=== PATIENT | female | born 1990 | race Caucasian/White ===

== ENCOUNTER 2019-02-22 20:28 | Emergency (ER) | payer OTHER, SELFPAY ==
[2019-02-22 20:31] VITALS: BP 125/82; PULSE 106; RESP 18; TEMP 36.8; O2SAT 98; BMI 40.7
--- NOTE | 2019-02-22 20:44 | ED_ITS ---
Entered by Anna Pepe, acting as scribe for HPI - Female Genitourinary General: Chief complaint: Vaginal Bleeding Stated complaint: hydratinitis - bleeding Time Seen by Provider: 02/22/19 20:42 Source: patient Mode of arrival: ambulatory History of Present Illness: HPI Narrative: 29 yo female presents with bleeding from buttocks tear. pt has a hx of hydratinitis. pt has no pain. pt states nothing made this better or worse. pt denies any other symptoms at this time. Onset (ago): day(s) (today) Severity: mild Consistency: constant Vaginal discharge: none Vaginal bleeding: none Exacerbating factors: none Relieving factors: none Associated symptoms: Reports no associated symptoms; Deny abdominal pain, headache(s) or nausea Treatment prior to arrival: none Review of Systems Const: Denies: fever or chills Eyes: Denies: change in vision ENMT: Denies: throat pain or mouth pain Card: Denies: chest pain Resp: Denies: shortness of breath GI: Denies: abdominal pain, nausea, vomiting or diarrhea : Denies: difficulty urinating Musc: Denies: back pain or joint pain Skin/Breast: Denies: rash Neuro: Denies: headache or behavioral changes Psych: Denies: depression Endo: Denies: excessive urination [place]/Lymph: Denies: easy bruising All/Imm: Denies: hives PFSH ED PFSH: Statuses (acute, chronic, etc) shown below reflect problem list status as previously entered and may not be historically accurate Social History Smoking and tobacco status: never smoked Physical Exam Const: COMMON NORMALS: no apparent distress and healthy appearing HENMT: COMMON NORMALS: normocephalic and external nose normal HEAD & SCALP: normocephalic NOSE: external nose normal and no nasal discharge (nasal dischage) Eye: COMMON NORMALS: PERRL PUPIL: Yes PERRL Neck/C-Spine: COMMON NORMALS: full ROM and no lymphadenopathy Chest: COMMONS NORMALS: inspection of chest normal Resp: COMMON NORMALS: normal respiratory effort and clear to auscultation bilaterally AUSCULTATION: clear to auscultation bilaterally Cardio: COMMON NORMALS: regular rate and regular rhythm RATE: regular rate RHYTHM: regular rhythm GI: COMMON NORMALS: soft to palpation PALPATION: Yes soft : OTHER: Extensive scar tissue from hidradenitis at the gluteal cleft patient has a small tear there in the scar tissue with very slight bleeding Extremity: COMMON NORMALS: normal to inspection, full ROM and normal capillary refill Psych: COMMON NORMALS: mental status grossly normal and cooperative Skin: COMMON NORMALS: no rashes or lesions noted GENERAL SKIN EXAM: no rashes or lesions noted Course Vital Signs: Vital signs: Vital Signs Temperature 97.8 F 02/22/19 21:04 Pulse Rate 101 H 02/22/19 21:04 Respiratory Rate 18 02/22/19 21:04 Blood Pressure 154/95 02/22/19 21:04 Pulse Oximetry 97 02/22/19 21:04 MDM - Female MDM Narrative: Medical decision making narrative: Patient presents here with bleeding from scar tissue. Patient had less bleeding at this time and will just do pressure dressing. Patient is to follow-up with her men's basketball coach return to ER if worsening. Discharge Plan Discharge Patient Disposition: Home, Self-Care Clinical Impression: Hidradenitis Condition: Stable Prescriptions: No Action 1 tab RF: 0 Humira RF: 0 Discharge Orders: Discharge Order (Routine); Ordered 02/22/19 Ordered By: Jeanne Moon Referrals: Crow Sanchez MD [Primary Care Provider] - Discharge Diet: Advance as tolerated Discharge Activity: Resume usual activity Activity Restrictions/Additional Instructions: Keep pressure on bleeding site and keep bandages in place. Follow-up with men's basketball coach in 5 to 7 days and return to the ER if worsening. Coding Level of Care Code ED Plastic Maker for Luisa Tracy The documentation recorded by the Afshin price Bridget Annette, accurately reflects the service I personally performed and the decisions made by Jamie elizabeth Korby, MD
[2019-02-22 20:45] VITALS: BP 144/84; PULSE 101; RESP 18; O2SAT 97
[2019-02-22 21:04] VITALS: BP 154/95; PULSE 101; RESP 18; TEMP 36.6; O2SAT 97
== END 2019-02-22 21:05 | disposition home or self-care (01) ==
LOC: ER 23:11
PROVIDERS: Emergency Provider Emergency Medicine; Family Provider Family Medicine; PCP Family Medicine
DX: L73.2 Hidradenitis suppurativa (principal)
CPT/HCPCS: 99281

== ENCOUNTER 2020-03-26 14:25 | Outpatient (CLI) | payer OTHER, SELFPAY | END 2020-03-26 14:26 | disposition home or self-care (01) | LOC: WOUND 14:25 | PROVIDERS: Family Provider Family Medicine; PCP Family Medicine; Visit Provider Thoracic Surgery (Cardiothoracic Vascular Surgery) | DX: L98.492 Non-pressure chronic ulcer of skin of other sites with fat layer exposed (principal) | CPT/HCPCS: 11042; G0463 ==

== ENCOUNTER 2020-04-02 10:34 | Outpatient (CLI) | payer OTHER, SELFPAY | END 2020-04-02 10:35 | disposition home or self-care (01) | LOC: WOUND 10:34 | PROVIDERS: Family Provider Family Medicine; PCP Family Medicine; Visit Provider Thoracic Surgery (Cardiothoracic Vascular Surgery) | DX: L73.2 Hidradenitis suppurativa (principal) | CPT/HCPCS: 11042 ==

== ENCOUNTER 2020-04-16 13:47 | Outpatient (CLI) | payer OTHER, SELFPAY | END 2020-04-16 13:48 | disposition home or self-care (01) | LOC: WOUND 13:47 | PROVIDERS: Family Provider Family Medicine; PCP Family Medicine; Visit Provider Thoracic Surgery (Cardiothoracic Vascular Surgery) | DX: L73.2 Hidradenitis suppurativa (principal) | CPT/HCPCS: 11042 ==

== ENCOUNTER 2020-06-21 14:41 | Emergency (ER) | payer OTHER, SELFPAY ==
[2020-06-21 14:44] VITALS: BP 137/101; PULSE 115; RESP 18; TEMP 36.6; O2SAT 100; BMI 36.0
--- NOTE | 2020-06-21 14:53 | USR_ITS ---
PROCEDURE INFORMATION: Exam: US First Trimester, Transabdominal and US , Transvaginal Exam date and time: 06/21/2020 3:08 PM Age: 30 years old Clinical indication: Lmp or gestational age (in weeks): 8 weeks 5 days; Other: Vaginal bleeding; ; Additional info: Threatened ab TECHNIQUE: Imaging protocol: Real-time transabdominal obstetrical ultrasound of the maternal pelvis and a first trimester , less than 14 weeks 0 days, with image documentation. Transvaginal imaging was used for better evaluation of the fetus, adnexa, and/or cervix. Total images: 41 COMPARISON: US [facility] 08/16/2016 2:38 PM FINDINGS: Gestation: Single live intrauterine gestation. Measured age by crown rump length 8 weeks 5 days. Normal size yolk sac. Embryonic/ heart rate: Positive cardiac activity at 167 beats minute. Placenta: Unremarkable. No subchorionic bleed. Amniotic fluid: Amniotic fluid is normal for gestational age. BIOMETRY: Gestational age (AUA): 8 weeks 5 days. MATERNAL: Uterus: Anteverted uterus dimensions 8.8 cm x 5.6 cm x 7.1 cm. Cervix: Cervix normal. Internal os closed. Cervical length 5 cm. Right adnexa: Right ovary sonographically normal measuring 2.1 cm x 1.3 cm x 1.7 cm. Positive arterial flow. No visible right adnexal mass or cystic lesion. Left adnexa: Left ovary sonographically normal measuring 2.3 cm x 1.9 cm x 2.1 cm. Positive arterial flow. Small involuting corpus luteal cyst measuring 8 mm. No visible left adnexal mass or cystic structure. Intraperitoneal space: No free fluid the cul-de-sac. Other findings: Estimated dated delivery 01/26/2021. US/US OB <=14 wk fetus w transvag IMPRESSION: Single live intrauterine gestation with positive cardiac activity and measured age by crown rump length 8 weeks 5 days.
--- NOTE | 2020-06-21 15:05 | W.ED.FEMALGU ---
HPI - Female Genitourinary General: Chief complaint: Urogenital-Female Stated complaint: 9-10 wks ,spotting and cramping Time Seen by Provider: 06/21/20 14:52 History of Present Illness: HPI Narrative: The patient is a 30-year-old female at approximately 10 weeks gestation. She comes today complaining of cramping and spotting yesterday and today spotting but no cramping. She had a positive test early in May. She says she does not know her last menstrual period because in February she had an IUD which was removed around that time. She did not have a menstrual period since the removal. She is a G4, P1 with a healthy 4-year-old child. 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 Her blood pressure is slightly elevated 137/101. She said during her OB interview her systolic was 117. Recommended continued outpatient monitoring of her blood pressure and check it at home and bring that to her OB Dr. Sanchez next week. Denies urinary symptoms. She thinks she is Rh+. MD elicited complaint: possible miscarriage Severity: mild Consistency: intermittent Associated symptoms: Reports no associated symptoms; Deny abdominal pain or headache(s) Review of Systems General: Reports: 10 or more systems reviewed and unremarkable except in HPI and below Const: Denies: fatigue Eyes: Denies: change in vision, blurry vision or eye redness ENMT: Denies: throat pain, swelling of lips/tongue, ear or mastoid pain or nasal congestion Card: Denies: chest pain, palpitations, irregular heart rhythm, edema, dyspnea on exertion or orthopnea Resp: Denies: dyspnea, productive cough or non-productive cough GI: Denies: abdominal pain, diarrhea or GI cramping : Reports: other (Vaginal spotting of blood); Denies: flank pain, difficulty voiding, urinary frequency or urinary urgency Musc: Denies: neck pain, back pain, extremity pain, joint pain, joint redness, limited range of motion or muscle weakness Skin/Breast: Denies: rash, pruritus, erythema, skin pain or skin tenderness Neuro: Denies: headache(s), numbness in extremities, weakness in extremities, sensory changes, difficulty walking, dizziness, confusion or Slurred speech present Psych: Denies: anxiety or depression Endo: Denies: polyuria All/Imm: Denies: urticaria, throat swelling or tongue swelling PFSH ED PFSH: Medical History Depression Hidradenitis suppurativa Surgical History H/O tooth extraction Social History Smoking and tobacco status: never smoked Physical Exam Const: COMMON NORMALS: no acute distress, average body habitus, patient oriented x3, no limitations, healthy appearing, alert and well nourished GENERAL APPEARANCE: cooperative, comfortable, well kempt and well developed ORIENTATION/CONSCIOUSNESS: Yes awake, Yes oriented to person, Yes oriented to place and Yes oriented to time HENMT: COMMON NORMALS: normocephalic, external ears normal and Normal external nose present HEAD & SCALP: normal to inspection and normocephalic NOSE: Normal external nose present EXTERNAL EAR: Yes external ears normal MOUTH: Normal oral and palatal mucosa present THROAT: posterior oropharynx normal Eye: COMMON NORMALS: Equal, round and reactive pupils present and EOMs intact bilaterally GENERAL EYE: appearance normal, both eyes and all related structures PUPIL: Yes Equal, round and reactive pupils present Neck/C-Spine: COMMON NORMALS: full ROM, no lymphadenopathy, no meningeal signs and no JVD GENERAL: Yes normal visual inspection Lymph: LYMPHATIC: no lymphadenopathy noted Chest: COMMONS NORMALS: normal inspection of the chest and normal palpation of entire chest wall Resp: COMMON NORMALS: normal respiratory effort, No retractions, No use of accessory muscles, clear to auscultation bilaterally and percussion normal EFFORT & INSPECTION: Yes able to speak in complete sentences AUSCULTATION: clear to auscultation bilaterally PERCUSSION: percussion normal Cardio: COMMON NORMALS: no JVD, regular rate, regular rhythm, S1 normal heart sound present, S2 normal heart sound present and Peripheral pulses 2+ throughout RATE: regular rate RHYTHM: regular rhythm HEART SOUNDS: S1 normal heart sound present and S2 normal heart sound present PERIPHERAL PULSES: Peripheral pulses 2+ throughout GI: COMMON NORMALS: Normal to inspection, nondistended, normoactive bowel sounds present, Soft to palpation, non-tender and no masses INSPECTION: Yes normal to inspection PALPATION: Yes Soft to palpation OTHER: Uterus not palpable likely gestation 12 weeks or less. : COMMON NORMALS: Yes no CVA tenderness BLADDER/KIDNEY EXAM: Yes no CVA tenderness Back/Pelvis: COMMON NORMALS: no CVA tenderness, thoracic and lumbar spine normal to inspection, no thoracic nor lumbar tenderness and thoraco-lumbar ROM normal Extremity: COMMON NORMALS: normal to inspection, full ROM, capillary refill normal, no joint enlargement and no pedal edema GENERAL: Yes normal exam except as noted Neuro: COMMON NORMALS: patient oriented x3, CN's II-XII intact bilaterally, moves all extremities, no focal motor deficits, no sensory deficits noted and gait normal SENSORIUM/ORIENTATION: Yes alert, Yes oriented to person, Yes oriented to place and Yes oriented to time MENINGEAL SIGNS: Yes no meningeal signs Psych: COMMON NORMALS: mental status grossly normal, Normal thought process present, cooperative, normal affect and speech normal APPEARANCE: Yes well kempt ATTITUDE: Yes calm SPEECH: Yes normal speech THOUGHT PROCESS: Normal thought process present Skin: COMMON NORMALS: no rashes or lesions noted GENERAL SKIN EXAM: no rashes or lesions noted Course Vital Signs: Vital signs: Vital Signs Temperature 97.8 F 06/21/20 14:44 Pulse Rate 115 H 06/21/20 14:44 Respiratory Rate 18 06/21/20 14:44 Blood Pressure 137/101 06/21/20 14:44 Pulse Oximetry 100 06/21/20 14:44 MDM - Female MDM Narrative: Medical decision making narrative: Patient comes to the ER with a threatened miscarriage with some vaginal spotting yesterday and today. Ultrasound shows a healthy 8-week, 5-day old fetus. She has elevated blood pressure as well. In her screen her systolic blood pressure was 117 which is normal. She says she is very anxious because she has had 2 previous miscarriages and that is likely why she is tachycardic and slightly hypertensive. Continue to monitor it at home and follow-up with Dr. Sanchez next week. ER with worsening symptoms at any time. Lab Data: Labs: Lab Results 06/21/20 06/21/20 06/21/20 Range/Units 16:04 16:04 16:14 WBC 9.9 (4.0-10.0) 10^3/ uL RBC 3.74 L (4.1-5.3) 10^6/u L Hgb 10.1 L (11.5-15.3) g/dL Hct 32.4 L (37.0-47.0) % MCV 86.6 (81-99) fL MCH 27.0 L (28.0-34.0) pg MCHC 31.2 (30.0-36.0) g/dL RDW 12.7 (12.1-15.1) % Plt Count 312 (130-400) 10^3/c mm MPV 9.9 (7.4-10.4) fL Neut % (Auto) 72.1 % Lymph % (Auto) 17.7 % [place] % (Auto) 7.8 % Eos % (Auto) 1.7 % Baso % (Auto) 0.4 % Neut # (Auto) 7.16 (1.8-7.7) 10^3/u L Lymph # (Auto) 1.8 (0.8-4.8) 10^3/u L [place] # (Auto) 0.8 (0.2-0.9) 10^3/u L Eos # (Auto) 0.2 (0.0-0.8) 10^3/u L Baso # (Auto) 0.0 (0.0-0.1) 10^3/u L Nucleated RBC % (a uto) 0 % Nucleated RBCs # 0.0 /100WBC Potassium 4.1 (3.5-5.1) mmol/L Chloride 101 (98-107) mmol/L Carbon Dioxide 24 (22-29) mmol/L Anion Gap 14.1 (5-19) BUN 8 (6-20) mg/dL Creatinine 0.8 (0.5-0.9) mg/dL Glucose 94 (65-115) mg/dL Total Bilirubin 0.2 (0.15-1.2) mg/dL AST 8 (0-32) U/L ALT < 5 (0-33) U/L Alkaline Phosphata se 71 (35-105) IU/L Total Protein 7.2 (6.6-8.7) g/dL Globulin 4.1 (1.3-4.6) g/dL Urine Color Yellow (Yellow) Urine Appearance Clear (CLEAR) Urine pH 5 (5-7) Ur Specific Gravit y 1.020 (1.005-1.030) Urine Protein Neg (Negative) Urine Glucose (UA) Norm (Normal) Urine Ketones Negative (Negative) Urine Blood 3+ H (Negative) Urine Nitrate Negative (Negative) Urine Bilirubin Neg (Negative) Urine Urobilinogen Norm (Negative) mg/dL Ur Leukocyte Herlinda ase 1+ H (Negative) Urine RBC 5-10 H (0-2) /hpf Urine WBC 10-15 H (0-5) /hpf Ur Squamous Epith Cells 5-10 H (0-5) /hpf Amorphous Sediment Not Reportable Urine Bacteria Trace (NONE) /hpf Discharge Plan Discharge Patient Disposition: Home Clinical Impression: , threatened Condition: Stable Prescriptions: No Action (DME) Mepilex 4 X 4 bandage See Rx Instructions .ROUTE .MEDSUPPLY Qty: 5 RF: 6 1 tab PO DAILY RF: 0 Discharge Orders: Discharge ED (Routine); Ordered 06/21/20 Ordered By: Gibran Merchant Referrals: Crow Sanchez MD [Primary Care Provider] - Discharge Diet: Advance as tolerated Discharge Activity: Resume usual activity Patient Instructions: Threatened Miscarriage (ED), Opioid Safety Activity Restrictions/Additional Instructions: You have had some spotting which is called a threatened miscarriage. This can be normal for or it can be an early sign of a possible miscarriage. Your ultrasound did look good which is encouraging. Please follow-up with Dr. Sanchez next week as you already have scheduled and continue to monitor your blood pressure at home as it is elevated here. Return to the ER with worsening symptoms otherwise follow-up with Dr. Sanchez next week. Your baby measures 8 weeks, 5 days here in the ED. Congratulations! Coding Level of Care Code ED Chief Nurse for Kyleg Fwd Exam Comprehensive
[2020-06-21 16:19] LABS: Basophils % 0.4 %; Eosinophils # 0.2 10^3/uL (0.0-0.8); Eosinophils % 1.7 %; Hematocrit 32.4 % (37.0-47.0); Hemoglobin 10.1 g/dL (11.5-15.3); Lymphocytes # 1.8 10^3/uL (0.8-4.8); Lymphocytes % 17.7 %; Mean Corpuscular HGB Conc 31.2 g/dL (30.0-36.0); Mean Corpuscular Volume 86.6 fL (81-99); Mean Platelet Volume 9.9 fL (7.4-10.4); Monocytes # 0.8 10^3/uL (0.2-0.9); Monocytes % 7.8 %; Neutrophils # 7.16 10^3/uL (1.8-7.7); Neutrophils % 72.1 %; Nucleated Red Blood Cells % 0 %; Platelet Count 312 10^3/cmm (130-400); Red Blood Count 3.74 10^6/uL (4.1-5.3); Red Cell Distribution Width 12.7 % (12.1-15.1); White Blood Count 9.9 10^3/uL (4.0-10.0)
[2020-06-21 16:36] LABS: Add Urine Microscopic? YES; Bilirubin Urine Neg (Negative); Blood Urine 3+ (Negative); Glucose Urine UA Norm (Normal); Ketones Urine Negative (Negative); Leukocyte Esterase Urine 1+ (Negative); Nitrate Urine Negative (Negative); Protein Urine Neg (Negative); Urine Appearance Clear (CLEAR); Urine Color Yellow (Yellow); Urobilinogen Urine Norm (Negative); pH Urine 5 (5-7)
[2020-06-21 16:37] LABS: Add Urine Culture? Yes; Bacteria Urine TRACE /hpf
[2020-06-21 16:58] LABS: Alanine Aminotransferase < 5 U/L (0-33); Albumin Level 3.1 g/dL (3.5-5.2); Alkaline Phosphatase 71 IU/L (35-105); Anion Gap 14.1 (5-19); Aspartate Amino Transferase 8 U/L (0-32); Blood Urea Nitrogen 8 mg/dL (6-20); Calcium 8.2 mg/dL (8.5-10.5); Carbon Dioxide 24 mmol/L (22-29); Chloride 101 mmol/L (98-107); Creatinine Clr Calc Pharmacy 128.8965; Globulin 4.1 g/dL (1.3-4.6); Glomerular Filtration Rate 84.8 mL/min (90-130); Glucose 94 mg/dL (65-115); Osmolality Calculated 278 mOsm/kg (285-295); Potassium 4.1 mmol/L (3.5-5.1); Sodium 135 mmol/L (136-145); Total Bilirubin 0.2 mg/dL (0.15-1.2); Total Protein 7.2 g/dL (6.6-8.7)
== END 2020-06-21 17:08 | disposition home or self-care (01) ==
PROVIDERS: Emergency Provider Family Medicine; PCP Family Medicine
DX: O20.0 Threatened abortion (principal); Z3A.08 8 weeks gestation of pregnancy
CPT/HCPCS: 36415; 76801; 76817; 80053; 81001; 84702; 85025; 86850; 86900; 87086; 99283

== ENCOUNTER 2021-01-07 13:11 | Outpatient (CLI) | payer OTHER, SELFPAY ==
[2021-01-07 13:57] VITALS: BP 137/87; PULSE 100
[2021-01-07 14:12] VITALS: RESP 18; BMI 36.1
[2021-01-07 14:20] VITALS: BP 143/73; PULSE 97
[2021-01-07 14:35] VITALS: BP 157/78; PULSE 94
[2021-01-07 14:35] LABS: Actim Prom Negative
== END 2021-01-07 14:50 | disposition home or self-care (01) ==
LOC: OPOB 13:19 → OBGYN 13:31 → OPOB 13:49
PROVIDERS: PCP Family Medicine; Visit Provider Family Medicine
DX: O99.891 Other specified diseases and conditions complicating pregnancy (principal); N89.8 Other specified noninflammatory disorders of vagina
CPT/HCPCS: 59025; 84112; 99211

== ENCOUNTER 2021-01-08 17:00 | Inpatient (IN) | payer OTHER, SELFPAY ==
[2021-01-08] VITALS (21 sets, daily range): BP systolic 127–163; BP diastolic 65–102; PULSE 80–107; RESP 15; TEMP 36.7; BMI 37.3
[2021-01-08 16:47] LABS: Actim Prom Positive
[2021-01-08] MEDS: dextrose 5%-lactated ringers 1,000 ML 125 ML IV (18:38)
[2021-01-08] MEDS: ampicillin 2,000 MG in sodium chloride 0.9% (plus) 50 ML 100 MG IV (18:39)
[2021-01-08] MEDS: miSOPROStol 100 mcg tablet 25 MCG SUBLINGUAL (18:40)
[2021-01-08 18:59] LABS: Basophils # 0.1 10^3/uL (0.0-0.1); Basophils % 0.4 %; Eosinophils # 0.1 10^3/uL (0.0-0.8); Eosinophils % 0.6 %; Hematocrit 30.2 % (37.0-47.0); Hemoglobin 9.4 g/dL (11.5-15.3); Lymphocytes # 1.5 10^3/uL (0.8-4.8); Mean Corpuscular HGB Conc 31.1 g/dL (30.0-36.0); Mean Corpuscular Hemoglobin 26.3 pg (28.0-34.0); Mean Corpuscular Volume 84.4 fl (81-99); Mean Platelet Volume 11.6 fL (7.4-10.4); Monocytes # 0.9 10^3/uL (0.2-0.9); Monocytes % 7.7 %; Neutrophils # 8.95 10^3/uL (1.8-7.7); Neutrophils % 77.3 %; Nucleated Red Blood Cells % 0 %; Platelet Count 294 10^3/cmm (130-400); Red Blood Count 3.58 10^6/uL (4.1-5.3); Red Cell Distribution Width 12.2 % (12.1-15.1); White Blood Count 11.6 10^3/uL (4.0-10.0)
[2021-01-08 19:13] LABS: Alanine Aminotransferase 15 U/L (0-33); Albumin Level 2.5 g/dL (3.5-5.2); Alkaline Phosphatase 287 IU/L (35-105); Aspartate Amino Transferase 18 U/L (0-32); Blood Urea Nitrogen 6 mg/dL (6-20); Calcium 8.7 mg/dL (8.5-10.5); Carbon Dioxide 18 mmol/L (22-29); Chloride 102 mmol/L (98-107); Globulin 4.4 g/dL (1.3-4.6); Glomerular Filtration Rate 145.9 mL/min (90-130); Glucose 63 mg/dL (65-115); Osmolality Calculated 274 mOsm/kg (285-295); Sodium 134 mmol/L (136-145); Total Bilirubin 0.2 mg/dL (0.15-1.2); Total Protein 6.9 g/dL (6.6-8.7); Uric Acid 4.2 mg/dL (2.4-5.7)
[2021-01-08 19:15] LABS: Anion Gap 18.2 (5-19); Potassium 4.2 mmol/L (3.5-5.1)
[2021-01-08 19:33] LABS: Slide Review Slide Review Perform
[2021-01-08 21:33] LABS: Urine Creatinine 141 mg/dL (28-217)
[2021-01-08 21:34] LABS: UPRO/UCREAT Ratio 0.16 mg/mg CR; Urine Protein Random 22 mg/dL
[2021-01-08] MEDS: ampicillin 1,000 MG in sodium chloride 0.9% (plus) 50 ML 100 MG IV (23:11)
[2021-01-08] MEDS: fentaNYL 50 mcg/mL INJ 2mL IVP (23:13)
[2021-01-08] MEDS: oxytocin 30 UNIT/500 ML BAG IV (23:15)
[2021-01-09] VITALS (117 sets, daily range): BP systolic 109–156; BP diastolic 54–95; PULSE 60–131; RESP 16–17; TEMP 35.6–36.9; O2SAT 81–100
[2021-01-09] MEDS: lactated ringers 1,000 ML 999 ML IV ×2 (00:03→01:05)
[2021-01-09] MEDS: fentaNYL 50 mcg/mL INJ 2mL IVP (00:32)
[2021-01-09] MEDS: alum-mag-hydroxide-sime 30 mL UDC PO (01:04)
--- NOTE | 2021-01-09 01:10 | P.ANESASSM_ITS ---
Pre-Anesthetic Assessment Pre-Anesthetic Assessment: Height/Weight: Height 1.7 m Weight 107.955 kg Temp Pulse Resp BP 98.1 F 96 17 150/92 01/08/21 16:25 01/09/21 01:00 01/09/21 00:32 01/09/21 01:00 Preop Diagnosis: labor pain Proposed Procedure: epidural Familial anesthetic complications: none Was Beta Nighat taken within 24 hours: N/A Was Clonidine taken within 24 hours: N/A Social: Social History: No alcohol and No tobacco Exam: Pre-Anes Outpt Exam: alert, oriented x 3, clear to auscultation bilaterally and regular rate & rhythm Airway: Submandibular: WNL Cervical ROM: WNL MP: 2 Dentition: Full Pulmonary: Pulmonary: None reported CV/HEM: CV/HEM: None reported : : None reported Hepatic: Hepatic: None reported GI: GI: GERD Metabolic: Metabolic: None reported Musc/skel: Musc/skel: None reported Neuropsych: Neuropsych: None reported Anesthetic Plan: ASA status: 2 Anesthesia: Regional (specify below) Risk of > 500 ml blood loss (7ml/kg in children): No Meds/Allergies Current Medications: Current Medications Generic Name Dose Route Start Last Admin Trade Name Freq PRN Reason Stop Dose Admin Al Hydrox/Mg [place] x/Simethicone 30 ml 01/08/21 17:13 01/09/21 01:04 Zktj-[id number] de-Paolo 30 Ml Udc PO 30 ml Q4H PRN Administration INDIGESTION Fentanyl 25 - 100 mcg 01/08/21 17:13 01/09/21 00:32 Fentanyl 50 Mcg/ Ml Inj 2ml IVP 50 mcg Q1H PRN Administration SEVERE PAIN Dextrose/Lactated Ringer's 1,000 mls @ 125 m ls/hr 01/08/21 17:15 01/08/21 18:38 Dextrose 5%-Lact ated Ringers IV 125 mls/hr .Q8H LAURA Administration Ampicillin Sodium 1,000 mg/ 50 mls @ 100 mls/ hr 01/08/21 22:30 01/08/21 23:11 Sodium Chloride IV 100 mls/hr Q4H LAURA Administration Protocol Oxytocin 30 unit in 500 ml s @ 1 mls/hr 01/08/21 22:45 01/08/21 23:15 Pitocin IV 1 milliunit/min .Q24H LAURA 1 mls/hr Administration Protocol 1 MILLIUNIT/MIN Lactated Ringer's 1,000 mls @ 999 m ls/hr 01/09/21 00:00 01/09/21 00:03 Lactated Ringers IV 999 mls/hr .Q1H1M PRN Administration See label comment s PFSH Anesthesia PFSH: Medical History Depression Hidradenitis suppurativa Surgical History H/O tooth extraction Social History Smoking and tobacco status: never smoked History of recent travel: No Female Reproductive History: : 2 Data Anesthesia CBC & Chem 7: 01/08/21 17:45 01/08/21 17:45 Other Labs: Laboratory Results - last 48 hr 01/08/21 01/08/21 01/08/21 16:28 17:45 17:45 WBC 11.6 H RBC 3.58 L Hgb 9.4 L Hct 30.2 L MCV 84.4 MCH 26.3 L MCHC 31.1 RDW 12.2 Plt Count 294 MPV 11.6 H Neut % (Auto) 77.3 Lymph % (Auto) 13.0 [place] % (Auto) 7.7 Eos % (Auto) 0.6 Baso % (Auto) 0.4 Neut # (Auto) 8.95 H Lymph # (Auto) 1.5 [place] # (Auto) 0.9 Eos # (Auto) 0.1 Baso # (Auto) 0.1 Nucleated RBC % (auto) 0 Nucleated RBCs # 0.0 Sodium 134 L Potassium 4.2 Chloride 102 Carbon Dioxide 18 L Anion Gap 18.2 BUN 6 Creatinine 0.5 GFR Calculation 145.9 H Glucose 63 L Calculated Osmolality 274 L Uric Acid 4.2 Calcium 8.7 Total Bilirubin 0.2 AST 18 ALT 15 Alkaline Phosphatase 287 H Total Protein 6.9 Albumin 2.5 L Globulin 4.4 Insulin-like GF I Positive U Random Total Protein Urine Creatinine Protein/Creatinin Ratio 01/08/21 21:01 WBC RBC Hgb Hct MCV MCH MCHC RDW Plt Count MPV Neut % (Auto) Lymph % (Auto) [place] % (Auto) Eos % (Auto) Baso % (Auto) Neut # (Auto) Lymph # (Auto) [place] # (Auto) Eos # (Auto) Baso # (Auto) Nucleated RBC % (auto) Nucleated RBCs # Sodium Potassium Chloride Carbon Dioxide Anion Gap BUN Creatinine GFR Calculation Glucose Calculated Osmolality Uric Acid Calcium Total Bilirubin AST ALT Alkaline Phosphatase Total Protein Albumin Globulin Insulin-like GF I U Random Total Protein 22 Urine Creatinine 141 Protein/Creatinin Ratio 0.16 Cardiac Studies: No Data to Display
--- NOTE | 2021-01-09 02:27 | P.ANES_ITS ---
Anesthesia Procedures Procedure/Date: 01/09/21 epidural Procedure Narrative: epidural complete, bolus given, epidural pump initiated with QUALITY IMPROVEMENT ANALYST education given, vitals taken during procedure and satisfactory throughout, the first attempted epidural did not have sufficient pain relief and patient requested to have another epidural placed. Second attempt successful patient admits to decrease pain, report of procedure to OB RN Epidural: Time Out Performed: Yes Consents Signed: Procedure Consent Consent: requested by attending/covering physician, from patient, risks and benefits reviewed and patient agrees to proceed Lumbar Level: L3-L4 Epidural position: sitting Epidural procedure: sterile prep of area, 1% lidocaine to numb the area (3 mL), 18 g needle, negative for paresthesia passed, neg for paresthesia, test dose given, 1.5% xylocaine 1:200k epi (5 mL), 0.2% Ropivacaine bolus ml (5 mL), placed PCEA, no systemic response, sterile dressing applied, L.U.D. no apparent complications and 0.2% Ropiavacaine @ mls/hr (13 mL/hr)
--- NOTE | 2021-01-09 02:37 | ANES.PROC ---
Anesthesia Procedures Procedure/Date: 01/09/21 100 mcg fentanyl given via epidural on first attempt with no change in pain level per patient. then second attempt initiated
[2021-01-09] MEDS: ampicillin 1,000 MG in sodium chloride 0.9% (plus) 50 ML 100 MG IV (03:53)
[2021-01-09] MEDS: ondansetron 2 mg/ML SDV 2 mL 4 MG IVP (04:23)
--- NOTE | 2021-01-09 05:25 | PM.OPHPUD ---
Labor & Delivery H&P Update Date of Procedure: January 09, 2021 Date H&P Performed: 01/07/21 H&P update information: I have reviewed H&P completed within last 30 days, I have examined patient prior to procedure, Changes to prior documentation as noted here and H&P to be scanned into chart Changes to previous documentation: The patient she had spontaneous rupture of membranes. Her cervix was 3 cm dilated and 50% effaced. Admission Diagnosis: 37 weeks estimated gestational age Preop diagnosis: Spontaneous rupture of membranes. Planned procedure: Spontaneous vaginal delivery. Related Problem List Diagnoses (1) Hidradenitis suppurativa: (2) 37 weeks gestation of : (3) Spontaneous rupture of membranes:
--- NOTE | 2021-01-09 05:28 | PM.DELIVERY ---
Delivery Note: Date of delivery: January 09, 2021 Pre-delivery diagnoses: 1. 30-year-old 4 para 1-0-2-1 with an estimated gestational age of 37 weeks and 4 days presenting with spontaneous rupture of membranes 2. Hidradenitis suppurativa Post-delivery diagnoses: Status post spontaneous vaginal delivery Procedure: Spontaneous vaginal delivery. Op report anesthesia: Epidural Estimated blood loss (mL): 200 Pre-Delivery Course: The patient presented to the hospital at about 5:00 pm on the day prior to delivery. She complained of spontaneous rupture of membranes that had occurred shortly before coming to the hospital. She was checked and found to have grossly ruptured membranes. She was having rare contractions that were not painful. Cytotec 25 mcg x 1 was placed sublingual. Later she was placed on Pitocin. An epidural was placed. She progressed to complete without difficulty. Her had been relatively unremarkable. She does suffer from hidradenitis suppurativa. She received a couple of rounds of steroids during exacerbations in the second trimester of her . Otherwise her was unremarkable. Her blood type is A positive. She is antibody negative. She was GBS positive and received antibiotics per protocol. Her glucose screen was 102. She is rubella nonimmune. Otherwise her labs were within normal limits. Delivery: DELIVERY: The patient progressed to complete without difficulty. She delivered a male with a weight of 7 pounds 8 ounces with Apgars of 9, 10. The baby was delivered from the HARDY position. The baby's mouth and nose were suctioned at the site of the perineum. The baby was then completely delivered and placed on the mother's abdomen. The cord was then clamped and cut. There was a body cord x1. There was no meconium. The placenta and 3 vessel cord were delivered intact shortly thereafter. The perineum and vaginal vault were carefully examined. A posterior midline second-degree laceration was noted. It was repaired in the usual fashion. She also had a first-degree periurethral anterior laceration that did not require repair.. Both the mother and the baby were in stable condition. Post-Delivery Status: Good A&P Assessment and plan (1) Hidradenitis suppurativa: Status: Acute (2) 37 weeks gestation of : Status: Acute (3) Spontaneous rupture of membranes: Status: Acute (4) Spontaneous vaginal delivery: I anticipate routine care. If she does well, she should be discharged tomorrow with her baby. Status: Acute Coding Level of Care Code Acute Medical Office Worker for [facility] Fwd Diagnoses Hidradenitis suppurativa L73.2 37 weeks gestation of Z3A.37 Spontaneous rupture of membranes Spontaneous vaginal delivery O80
--- NOTE | 2021-01-09 05:37 | PC.NURSE ---
First attempt results in hot spot on mother's left side. After speaking with CHAVO Smith regarding her options patient requested to remove and reattempt epidural.
[2021-01-09] MEDS: benzocaine-menthol 78 gm Canister 1 SPRAY TOPICAL (10:05)
[2021-01-09] MEDS: docusate sodium 100 mg Capsule PO ×2 (10:05→17:30)
[2021-01-09] MEDS: prenatal vitamin Capsule 1 CAP PO (10:05)
[2021-01-09] MEDS: ibuprofen 800 mg tablet PO ×3 (10:05→21:03)
[2021-01-09] MEDS: calcium carbonate 500 mg Chew Tablet 1000 MG PO (12:23)
[2021-01-09 17:04] LABS: Hematocrit 27.4 % (37.0-47.0); Hemoglobin 8.5 g/dL (11.5-15.3); Mean Corpuscular Hemoglobin 26.3 pg (28.0-34.0); Mean Corpuscular Volume 84.8 fl (81-99); Mean Platelet Volume 10.4 fL (7.4-10.4); Platelet Count 270 10^3/cmm (130-400); Red Blood Count 3.23 10^6/uL (4.1-5.3); Red Cell Distribution Width 12.3 % (12.1-15.1); White Blood Count 12.2 10^3/uL (4.0-10.0)
[2021-01-10] VITALS (7 sets, daily range): BP systolic 121–145; BP diastolic 60–95; PULSE 82–95; RESP 14–16; TEMP 36.3
--- NOTE | 2021-01-10 08:37 | P.DS_ITS ---
Discharge Providers USED [employer] Date of Admission: 01/08/21 17:00 Date of Discharge: 01/10/21 Attending Provider at Admission: Crow Sanchez MD Attending Provider at Discharge: Crow Sanchez MD Primary Care Provider: Crow Sanchez MD Diagnoses at Discharge Discharge Diagnosis (1) Hidradenitis suppurativa: Status: Acute (2) 37 weeks gestation of : Status: Acute (3) Spontaneous rupture of membranes: Status: Acute (4) Spontaneous vaginal delivery: Status: Acute Reason for Visit Reason for Visit: [facility] Hospital Course Hospital Course The patient presented to the hospital with ruptured membranes. She was given Cytotec 25 mcg sublingual. Her labor was augmented with Pitocin. An epidural was placed. She progressed to complete and had an unremarkable delivery of a healthy-appearing male . Her course was unremarkable. Her pain was well controlled. Her bleeding was within normal limits. She breast-fe d well. Information Peripartum Data: Infant Delivery Method: Vaginal Physical Exam Narrative: EXAM NARRATIVE: The patient is alert. She appears comfortable. Her heart has a regular rate and rhythm with no murmurs appreciated. Lungs are clear to auscultation bilaterally. Her fundus is firm and below the umbilicus. Urinary Catheter Management^: Pineda: Cath Placed During This Visit: yes, but has since been removed by the nurse Reason for Continuing Indwelling Catheter: Decision to DC Catheter Urinary Catheter Date of Insertion: 01/09/21 Urinary Catheter Time of Insertion: 02:29 Date Urinary Catheter Removed: 01/09/21 Time Urinary Catheter Discontinued: 04:35 Discharge Data Data Completed and Pending: Labs from last 24 hours 01/09/21 16:53 WBC 12.2 H RBC 3.23 L Hgb 8.5 L Hct 27.4 L MCV 84.8 MCH 26.3 L MCHC 31.0 RDW 12.3 Plt Count 270 MPV 10.4 Vitals: Last Vital Signs Temp 97.9 F 01/09/21 22:52 Pulse 93 01/10/21 04:50 Resp 14 01/10/21 06:20 BP 121/60 01/10/21 04:50 Pulse Ox 100 01/09/21 03:29 Discharge Plan Discharge Patient Disposition: Home Condition: Stable Prescriptions: New ibuprofen 800 mg Tablet 800 mg PO TID 15 Days Qty: 45 RF: 0 Continued 1 tab PO DAILY RF: 0 Discharge Orders: Discharge Order (Routine); Ordered 01/10/21 Ordered By: Crow Sanchez Referrals: Crow Sanchez MD [Primary Care Provider] - 6 Weeks Discharge Diet: Usual diet Discharge Activity: Limit activity as instructed Patient Instructions: Opioid Safety Discharge Attestations USED [employer] Time Spent in Discharge Care*: less than 30 min Specific Discharge Activities: Specific discharge activities: educating patient and educating and/or supporting family/caregiver Coding Level of Care Code 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
[2021-01-10] MEDS: docusate sodium 100 mg Capsule PO (09:52)
[2021-01-10] MEDS: ibuprofen 800 mg tablet PO (09:52)
[2021-01-10] MEDS: prenatal vitamin Capsule 1 CAP PO (09:52)
== END 2021-01-10 10:40 | disposition home or self-care (01) | DRG 807 ==
LOC: OPOB 01-09 05:18 → OBGYN 01-09 05:18
PROVIDERS: Admitting Provider Family Medicine; PCP Family Medicine; Visit Provider Family Medicine
DX: O99.824 Streptococcus B carrier state complicating childbirth (principal); Z37.0 Single live birth; O69.2XX0 Labor and delivery complicated by other cord entanglement, with compression, not applicable or unspecified; O90.1 Disruption of perineal obstetric wound; Z3A.37 37 weeks gestation of pregnancy; O75.89 Other specified complications of labor and delivery; L73.2 Hidradenitis suppurativa
CPT/HCPCS: 12345; 36415; 51702; 59025; 59409; 80053; 82570; 84112; 84156; 84550; 85025; 85027; 99211; J0290; J2405; J3010

== ENCOUNTER → 2022-01-24 15:49 | Outpatient (BNVA) | payer OTHER, SELFPAY | PROVIDERS: PCP Family Medicine; Visit Provider Family Medicine | DX: J11.1 Influenza due to unidentified influenza virus with other respiratory manifestations (principal); J02.0 Streptococcal pharyngitis | CPT/HCPCS: 87400 ==